=== PATIENT | male | born 1950 | race Caucasian/White ===

== ENCOUNTER 2018-09-12 10:03 | Emergency (ER) | payer MEDICARE, MEDICAID ==
[2018-09-12 11:38] VITALS: BP 164/101
--- NOTE | 2018-09-12 12:07 | ED ---
Lower Extremity - HPI Summary HPI Summary: Patient is a 67-year-old male who presents to the ED with left leg pain. He states this is an injury from several years ago and he is here because he is out of his tramadol. He also states his has needed some of the tramadol, but does not say either way if he is getting them to her. Denies any fevers, sweats, chills. Patient continues to state the only reason he is here is to refill his prescription and tramadol. He states he has been unable to see his PCP as he is too weak to walk. He is refusing social work consult. He denies any other complaints or symptoms. - History of Current Complaint Chief Complaint: EDExtremityLower Stated Complaint: LEG PAIN PER EMS Time Seen by Provider: 09/12/18 10:14 Hx Obtained From: Patient Mechanism Of Injury: Unknown Onset of Pain: Prior to Arrival Onset/Duration: Still Present Severity Initially: Moderate Severity Currently: Moderate Pain Intensity: 6 Pain Scale Used: 0-10 Numeric Timing: Constant Location: Is Discrete @ - left anterior thigh pain Character Of Pain: Aching Associated Signs And Symptoms: Negative: Swelling, Redness, Bruising Aggravating Factor(s): Standing, Ambulation Alleviating Factor(s): Rest Able to Bear Weight: No - Allergies/Home Medications Allergies/Adverse Reactions: Allergies Allergy/AdvReac Type Severity Reaction Status Date / Time Adhesive Tape Allergy Blisters Verified 03/14/16 15:48 [Tegaderm Dressing] PMH/Surg Hx/FS Hx/Imm Hx Previously Healthy: Yes Endocrine/Hematology History: Denies: Hx Anemia, Hx Unexplained Bleeding Cardiovascular History: Reports: Hx Congestive Heart Failure, Hx Hypertension, Other Cardiovascular Problems/Disorders Denies: Hx Aneurysm, Hx Angina, Hx Angioplasty, Hx Auto Implanted Cardiovert Defib, Hx Cardiac Arrest, Hx Cardiomegaly, Hx Congenital Heart Disease, Hx Coronary Artery Disease, Hx Deep Vein Thrombosis, Hx Hypercholesterolemia, Hx Hypotension, Hx Pacemaker/ICD, Hx Peripheral Vascular Disease, Hx Rheumatic Fever, Hx Syncope, Hx Valvular Heart Disease Respiratory History: Reports: Hx Pneumonia, Hx Sleep Apnea Denies: Hx Asthma, Hx Bronchopulmonary Dysplasia, Hx Chronic Bronchitis, Hx Chronic Obstructive Pulmonary Disease (COPD), Hx Cystic Fibrosis, Hx Lung Cancer , Hx Pleural Effusion, Hx Pulmonary Edema, Hx Pulmonary Embolism, Hx Seasonal Allergies, Other Respiratory Problems/Disorders GI History: Reports: Other GI Disorders - encephalopathy Denies: Hx Cirrhosis, Hx Crohn's Disease, Hx Diverticulosis, Hx Gall Bladder Disease, Hx Gastroesophageal Reflux Disease, Hx Gastrointestinal Bleed, Hx Hiatal Hernia, Hx Irritable Bowel, Hx Jaundice, Hx Obstructive Bowel, Hx Ileostomy, Hx Pyloric Stenosis, Hx Ulcer Sensory History: Denies: Hx Cataracts, Hx Contacts or Glasses, Hx Eye Injury, Hx Eye Prosthesis, Hx Glaucoma, Hx Macular Degeneration, Hx Vision Problem, Hx Deafness , Hx Hearing Aid, Hx Hearing Problem, Other Sensory Impairments Opthamlomology History: Denies: Hx Cataracts, Hx Contacts or Glasses, Hx Eye Injury, Hx Eye Prosthesis, Hx Glaucoma, Hx Macular Degeneration, Hx Vision Problem, Other Sensory Impairments Neurological History: Reports: Hx Dementia Denies: Hx Developmental Delay, Hx Headaches, Hx Migraine, Hx Seizures, Hx Spinal Cord Injury, Hx Transient Ischemic Attacks (TIA), Other Neuro Impairments /Disorders - Immunization History Hx Pertussis Vaccination: No Immunizations Up to Date: Yes Infectious Disease History: No Infectious Disease History: Denies: Hx Clostridium Difficile, Hx Hepatitis, Hx Human Immunodeficiency Virus (HIV), Hx Shingles, Hx Tuberculosis, Traveled Outside the [place] in Last 30 Days - Family History Known Family History: Negative: Hypertension, Diabetes Family History: LEVEL 5 CAVEAT UNABLE TO OBTAIN FULL HISTORY DUE TO PAST HISTORY OF DEMENTIA. - Social History Occupation: Unemployed Lives: Alone Alcohol Use: None Hx Substance Use: No Substance Use Type: Reports: None Hx Tobacco Use: No Smoking Status (MU): Never Smoked Tobacco Review of Systems Constitutional: Negative Negative: Fever, Chills Negative: Palpitations, Chest Pain Negative: Shortness Of Breath, Cough Positive: Arthralgia - left thigh pain Skin: Negative Neurological: Negative All Other Systems Reviewed And Are Negative: Yes Physical Exam Triage Information Reviewed: Yes Vital Signs On Initial Exam: Initial Vitals Pulse BP Pulse Ox 88 131/98 98 09/12/18 10:05 09/12/18 10:05 09/12/18 10:05 Vital Signs Reviewed: Yes Appearance: Positive: Well-Appearing, Well-Nourished Skin: Positive: Warm, Skin Color Reflects Adequate Perfusion Head/Face: Positive: Normal Head/Face Inspection Eyes: Positive: EOMI Neck: Positive: No Lymphadenopathy Respiratory/Lung Sounds: Positive: Clear to Auscultation Cardiovascular: Positive: RRR Musculoskeletal: Positive: Pain @ - left thigh pain Neurological: Positive: Alert, Oriented to Person Place, Time, Speech Normal Psychiatric: Positive: Affect/Mood Appropriate Diagnostics - Vital Signs Vital Signs Temp Pulse Resp BP Pulse Ox 09/12/18 11:38 97.6 F 79 18 164/101 100 09/12/18 11:34 85 164/101 99 09/12/18 11:12 82 167/100 98 09/12/18 11:00 82 98 09/12/18 10:42 72 167/95 99 09/12/18 10:14 87 98 09/12/18 10:12 85 143/97 98 09/12/18 10:06 97.6 F 89 16 131/98 99 09/12/18 10:05 88 131/98 98 - Laboratory Lab Statement: Any lab studies that have been ordered have been reviewed, and results considered in the medical decision making process. Lower Extremity Course/Dx - Course Course Of Treatment: During the course of treatment, the patient is evaluated for left leg pain. He states his leg pain has been present for several years, most notably located to the anterior thigh and states "I'm dying of this." However, he is unsure of what is causing the leg pain. He states he takes 6 tramadol daily and states he is out. I-STAT reveals his prescription was refilled on 08/16/18 which was 27 days ago. He should have 3 more days of this prescription, however states he has been out for 2 weeks. I attempted to explain how he should have 18 pills left and must be taking more than prescribed. He denies this. I have offered other pain control such as tylenol however he refuses. He will follow up with his PCP on friday and I have suggested a social work consult for further care and possibly housing if he is unable to get to his appointments. - Diagnoses Provider Diagnoses: Medication requested Discharge - Sign-Out/Discharge Documenting (check all that apply): Patient Departure Patient Received Moderate/Deep Sedation with Procedure: No - Discharge Plan Condition: Stable Disposition: HOME Referrals: Nicholas Virk MD [Primary Care Provider] - Additional Instructions: YOU NEED TO CALL YOUR PHYSICIAN ON FRIDAY MPORNING IF YOU ARE UNABLE TO GET TO YOUR APPOINTMENTS, I SUGGEST YOU CONTACT YOUR DOCTOR REGARDING SOCIAL WORK TO OBTAIN HOUSING DISCUSSED, WE ARE UNABLE TO FILL YOUR TRAMADOL PRESCRIPTION BECAUSE YOU HAVE A PRESCRIPTION THROUGH SEPTEMBER 14. - Billing Disposition and Condition Condition: STABLE Disposition: Home
== END 2018-09-12 11:38 | disposition home or self-care (01) ==
LOC: ED 10:03
DX: M79.605 Pain in left leg (principal); I50.9 Heart failure, unspecified; I11.0 Hypertensive heart disease with heart failure; Z79.899 Other long term (current) drug therapy
CPT/HCPCS: 99281

== ENCOUNTER 2023-09-17 19:27 | Inpatient (IN) ==
[2023-09-17 20:27] LABS: Hematocrit 48.3 % (38-53); Hemoglobin 16.1 g/dL (13.2-16.3); Mean Corpuscular Hemoglobin 31.3 pg (27-33); Mean Corpuscular Hgb Conc 33.4 g/dL (31-36); Mean Corpuscular Volume 93.8 fL (80-97); Platelet Count 289 10^3/uL (150-450); Red Blood Count 5.15 10^6/uL (4.06-5.63); Red Cell Distribution Width 14.9 % (12-17)
[2023-09-17] MEDS: Lactated Ringers 1000 ml BAG 1,000 ML IV ONE ×2 (20:33→21:55)
[2023-09-17 21:04] LABS: ABS Lymphocytes 0.6 10^3/uL (1.0-4.8); ABS Monocytes 1.5 10^3/uL (0.0-1.1); ABS Neutrophils 16.9 10^3/uL (1.5-7.6); ABS Nucleated RBC 0.02 10^3/ul; Lymphocyte % 3.2 %; Nucleated Red Blood Cells % 0.1 %/100WBC (0.0-0.8)
[2023-09-17 21:13] LABS: Albumin 4.5 g/dL (3.2-5.2); Albumin/Globulin Ratio 1.5 (1-3); C Reactive Protein 140.44 mg/L (<8.01); Calcium 10.9 mg/dL (8.6-10.3); Creatinine, Serum 1.87 mg/dL (0.67-1.17); Magnesium 2.9 mg/dL (1.9-2.7); Total Bilirubin 2.3 mg/dL (0.2-1.0); Total Protein 7.5 g/dL (6.4-8.9)
[2023-09-17] MEDS: Piperacillin/Tazobac 3.375 BAG 3.375 GM/100 ML BAG IV ONE (21:40)
[2023-09-17 22:09] LABS: High Sensitivity Troponin 1 Hr 112 pg/mL (<20)
[2023-09-17 23:20] LABS: Creatinine, Serum 1.69 mg/dL (0.67-1.17); Potassium 3.9 mmol/L (3.5-5.0); eGFR CKD-EPI 42.9 (>60)
[2023-09-18] MEDS: D5W 1000 ml BAG 1,000 ML IV SCH (00:32)
[2023-09-18] MEDS: Metoprolol Tartrate 5 mg VIAL 5 ml VIAL (1 mg/ml) IV ONE ×4 (00:45→13:17)
[2023-09-18 01:41] LABS: Venous Bicarbonate HCO3 26.5 mmol/L (24-28)
[2023-09-18] MEDS: Enoxaparin 30 MG/0.3 ML SYR SUBCUT SCH (03:04)
[2023-09-18] MEDS: cefTRIAXone 1 gm/50 mL D5W 1 GM/50 ML BAG IV SCH (06:01)
[2023-09-18 07:45] LABS: Venous Bicarbonate HCO3 30.1 mmol/L (24-28)
[2023-09-18 07:51] LABS: ABS Lymphocytes 0.7 10^3/uL (1.0-4.8); ABS Monocytes 1.3 10^3/uL (0.0-1.1); ABS Neutrophils 13.1 10^3/uL (1.5-7.6); ABS Nucleated RBC 0.01 10^3/ul; Eosinophil % 0.1 %; Hematocrit 41.4 % (38-53); Hemoglobin 13.8 g/dL (13.2-16.3); Lymphocyte % 4.6 %; Mean Corpuscular Hemoglobin 31.1 pg (27-33); Mean Corpuscular Hgb Conc 33.4 g/dL (31-36); Mean Corpuscular Volume 93.3 fL (80-97); Nucleated Red Blood Cells % 0.1 %/100WBC (0.0-0.8); Platelet Count 226 10^3/uL (150-450); Red Blood Count 4.44 10^6/uL (4.06-5.63); Red Cell Distribution Width 14.5 % (12-17); White Blood Count 15.2 10^3/uL (3.6-10.2)
[2023-09-18 08:28] LABS: Albumin 3.5 g/dL (3.2-5.2); Albumin/Globulin Ratio 1.3 (1-3); Calcium 9.5 mg/dL (8.6-10.3); Creatinine, Serum 1.77 mg/dL (0.67-1.17); Globulin 2.6 g/dL (2-4); Magnesium 2.5 mg/dL (1.9-2.7); Phosphorus 2.8 mg/dL (2.5-5.0); Potassium 3.5 mmol/L (3.5-5.0); Total Bilirubin 2.2 mg/dL (0.2-1.0); Total Protein 6.1 g/dL (6.4-8.9); eGFR CKD-EPI 40.6 (>60)
[2023-09-18] MEDS: Sulfur Hexaflouride MICROSPHR 25 MG VIAL IV ONE (10:17)
[2023-09-18] MEDS: KCL 20 MEQ/100 ML IVPREMIX 20 MEQ/100 ML BAG IV SCH (11:21)
[2023-09-18] MEDS: Metoprolol Tartrate 5 mg VIAL 5 ml VIAL (1 mg/ml) ONE (11:21)
[2023-09-18 11:44] LABS: Urine Appearance Turbid; Urine Bilirubin 1+ (Negative); Urine Blood 3+ (Negative); Urine Color Yellow; Urine Glucose Negative (Negative); Urine Ketones 1+ (Negative); Urine Nitrite Negative (Negative); Urine Protein 1+ (>=30 mg/dL) (Negative); Urine Specific Gravity 1.023 (1.002-1.030); Urine Urobilinogen 1+ (Negative)
[2023-09-18 11:45] LABS: Urine Bacteria Absent /HPF (Absent); Urine Red Blood Cell Trace(0-2/hpf) /HPF (0-Trace); Urine White Blood Cell Trace(0-5/hpf) /HPF (0-Trace)
[2023-09-18 12:21] LABS: TSH Ultra Thyroid Stim Horm 1.4 mcIU/mL (0.34-5.60)
[2023-09-18 12:32] LABS: Folate 6.28 ng/mL (5.90-24.80)
[2023-09-18] MEDS ORDERED: Metoprolol Tartrate 5 mg VIAL 5 ml VIAL (1 mg/ml) IV PRN (12:58)
[2023-09-18 13:11] LABS: Albumin 3.4 g/dL (3.2-5.2); Albumin/Globulin Ratio 1.5 (1-3); Calcium 9.4 mg/dL (8.6-10.3); Creatinine, Serum 1.78 mg/dL (0.67-1.17); Globulin 2.3 g/dL (2-4); Magnesium 2.4 mg/dL (1.9-2.7); Potassium 3.8 mmol/L (3.5-5.0); Total Protein 5.7 g/dL (6.4-8.9); eGFR CKD-EPI 40.3 (>60)
[2023-09-18 13:20] LABS: Phosphorus 3.2 mg/dL (2.5-5.0)
[2023-09-18] MEDS: Metoprolol Tartrate 5 mg VIAL 5 ml VIAL (1 mg/ml) IV PRN (16:56)
[2023-09-19 00:13] LABS: Albumin 3.1 g/dL (3.2-5.2); Albumin/Globulin Ratio 1.3 (1-3); Calcium 8.9 mg/dL (8.6-10.3); Creatinine, Serum 1.65 mg/dL (0.67-1.17); Globulin 2.3 g/dL (2-4); Magnesium 2.2 mg/dL (1.9-2.7); Potassium 3.6 mmol/L (3.5-5.0); Total Bilirubin 1.5 mg/dL (0.2-1.0); Total Protein 5.4 g/dL (6.4-8.9); eGFR CKD-EPI 44.1 (>60)
[2023-09-19 06:25] LABS: Hematocrit 38.6 % (38-53); Hemoglobin 12.8 g/dL (13.2-16.3); Mean Corpuscular Hemoglobin 31.1 pg (27-33); Mean Corpuscular Hgb Conc 33.2 g/dL (31-36); Mean Corpuscular Volume 93.9 fL (80-97); Mean Platelet Volume 7.5 fL (7.5-11.2); Platelet Count 197 10^3/uL (150-450); Red Blood Count 4.12 10^6/uL (4.06-5.63); Red Cell Distribution Width 14.5 % (12-17); White Blood Count 11.6 10^3/uL (3.6-10.2)
[2023-09-19 06:41] LABS: Calcium 8.6 mg/dL (8.6-10.3); Creatinine, Serum 1.57 mg/dL (0.67-1.17); Magnesium 2.2 mg/dL (1.9-2.7); Potassium 3.6 mmol/L (3.5-5.0); eGFR CKD-EPI 46.8 (>60)
[2023-09-19] MEDS: KCL 20 MEQ/100 ML IVPREMIX 20 MEQ/100 ML BAG IV SCH (07:39)
[2023-09-19 08:24] LABS: ABS Eosinophils 0.1 10^3/uL (0.0-0.5); ABS Lymphocytes 1.6 10^3/uL (1.0-4.8); ABS Monocytes 0.9 10^3/uL (0.0-1.1); ABS Nucleated RBC 0.01 10^3/ul; Eosinophil % 0.5 %; Lymphocyte % 13.5 %; Nucleated Red Blood Cells % 0.1 %/100WBC (0.0-0.8); RBC Morphology Normal (Normal)
[2023-09-19] MEDS: Lactated Ringers 1000 ml BAG 1,000 ML IV SCH (10:15)
[2023-09-19] MEDS: Enoxaparin 30 MG/0.3 ML SYR SUBCUT SCH (11:18)
[2023-09-19] MEDS: Enoxaparin 80 MG/0.8 ML SYR SUBCUT SCH (11:29)
[2023-09-19] MEDS ORDERED: Sulfur Hexaflouride MICROSPHR 25 MG VIAL ONE (13:31)
[2023-09-19 14:53] LABS: Ferritin 368.2 ng/mL (24-336)
[2023-09-20 05:19] LABS: ABS Eosinophils 0.1 10^3/uL (0.0-0.5); ABS Lymphocytes 1.6 10^3/uL (1.0-4.8); ABS Monocytes 0.9 10^3/uL (0.0-1.1); ABS Neutrophils 7.5 10^3/uL (1.5-7.6); ABS Nucleated RBC 0.01 10^3/ul; Eosinophil % 1.3 %; Hemoglobin 12.3 g/dL (13.2-16.3); Lymphocyte % 15.6 %; Mean Corpuscular Hemoglobin 31.7 pg (27-33); Mean Corpuscular Hgb Conc 34.1 g/dL (31-36); Mean Corpuscular Volume 93.2 fL (80-97); Mean Platelet Volume 7.4 fL (7.5-11.2); Nucleated Red Blood Cells % 0.1 %/100WBC (0.0-0.8); Platelet Count 178 10^3/uL (150-450); Red Blood Count 3.87 10^6/uL (4.06-5.63); Red Cell Distribution Width 14.5 % (12-17); White Blood Count 10.1 10^3/uL (3.6-10.2)
[2023-09-20 05:37] LABS: Calcium 8.6 mg/dL (8.6-10.3); Creatinine, Serum 1.06 mg/dL (0.67-1.17); Magnesium 1.9 mg/dL (1.9-2.7); Potassium 4.2 mmol/L (3.5-5.0)
[2023-09-20] MEDS: Magnesium Sulfate 2 gm BAG 2 GM/50 ML BAG IVPB ONE (14:37)
[2023-09-20] MEDS: Lactated Ringers 1000 ml BAG 1,000 ML IV SCH (14:39)
[2023-09-20] MEDS: Digoxin IV 0.5 MG/2 ML AMP (0.25 MG/ML) ONE (17:46)
[2023-09-20] MEDS: Amiodarone 150 mg IVPREMIX 150 MG/100 ML BAG IV ONE ×2 (18:04→18:05)
[2023-09-20] MEDS: Digoxin IV 0.5 MG/2 ML AMP (0.25 MG/ML) IV ONE (18:04)
[2023-09-20] MEDS: Amiodarone 360 MG IVPREMIX 360 MG/200 ML BAG IV ONE (18:05)
[2023-09-20 18:07] LABS: Hematocrit 31.5 % (38-53); Hemoglobin 10.1 g/dL (13.2-16.3); Mean Corpuscular Hgb Conc 32.1 g/dL (31-36); Mean Corpuscular Volume 93.4 fL (80-97); Mean Platelet Volume 7.8 fL (7.5-11.2); Platelet Count 244 10^3/uL (150-450); Red Blood Count 3.37 10^6/uL (4.06-5.63); Red Cell Distribution Width 14.6 % (12-17); White Blood Count 16.7 10^3/uL (3.6-10.2)
[2023-09-20] MEDS: Amiodarone 360 MG IVPREMIX 360 MG/200 ML BAG IV SCH (18:10)
[2023-09-20 18:41] LABS: Albumin 2.5 g/dL (3.2-5.2); Albumin/Globulin Ratio 1.3 (1-3); Calcium 8.2 mg/dL (8.6-10.3); Creatinine, Serum 1.11 mg/dL (0.67-1.17); Potassium 4.7 mmol/L (3.5-5.0); Total Bilirubin 0.7 mg/dL (0.2-1.0); Total Protein 4.5 g/dL (6.4-8.9)
[2023-09-20 19:08] LABS: ABS Basophils 0.1 10^3/uL (0.0-0.1); ABS Eosinophils 0.1 10^3/uL (0.0-0.5); ABS Lymphocytes 1.9 10^3/uL (1.0-4.8); ABS Monocytes 1.3 10^3/uL (0.0-1.1); ABS Neutrophils 13.3 10^3/uL (1.5-7.6); ABS Nucleated RBC 0.02 10^3/ul; Eosinophil % 0.5 %; Lymphocyte % 11.4 %; Nucleated Red Blood Cells % 0.1 %/100WBC (0.0-0.8)
[2023-09-20] MEDS: Phenylephrine IV 10 MG/ML 1 ml VIAL ONE (19:08)
[2023-09-20] MEDS: PHENYLEPHRINE DRIP IVPREMIX 50 MG/250 ML BAG IV SCH (19:09)
[2023-09-20 19:48] LABS: PCO2 Arterial 28 mmHg (35-45); PO2 Arterial 236 mmHg (80-100)
[2023-09-20] MEDS: .Amiodarone 24HR ONLY IV Protocol Order Note IV ONE (20:56)
[2023-09-20 22:28] LABS: Magnesium 2.5 mg/dL (1.9-2.7)
[2023-09-20] MEDS: cefTRIAXone 1 gm/50 mL D5W 1 GM/50 ML BAG IV SCH (22:41)
[2023-09-20 23:36] LABS: Urine Appearance Clear; Urine Bilirubin Negative (Negative); Urine Blood Trace (Negative); Urine Color Light-Yellow; Urine Glucose Negative (Negative); Urine Ketones Negative (Negative); Urine Nitrite Negative (Negative); Urine Protein Negative (Negative); Urine Specific Gravity 1.016 (1.002-1.030); Urine Urobilinogen Negative (Negative)
[2023-09-20] MEDS: Iohexol 350 (CONTRAST) 500 ML MDV IV ONE (23:48)
[2023-09-21] MEDS ORDERED: Amiodarone 360 MG IVPREMIX 360 MG/200 ML BAG IV SCH (00:15)
[2023-09-21] MEDS ORDERED: Vancomycin per Pharmacy 1 EA NOTE FOLLOW UP SCH (01:00)
[2023-09-21] MEDS: Vancomycin 1,000 MG in NS 0.9% 250 ml 250 ML IVPB ONE (01:21)
[2023-09-21] MEDS: Lactated Ringers 1000 ml BAG 500 ML IV ONE (02:32)
[2023-09-21] MEDS: Metoprolol Tartrate 5 mg VIAL 5 ml VIAL (1 mg/ml) IV SCH (04:20)
[2023-09-21 05:08] LABS: Hematocrit 24.8 % (38-53); Hemoglobin 8.3 g/dL (13.2-16.3); Mean Corpuscular Hemoglobin 31.4 pg (27-33); Mean Corpuscular Hgb Conc 33.6 g/dL (31-36); Mean Corpuscular Volume 93.4 fL (80-97); Mean Platelet Volume 7.3 fL (7.5-11.2); Platelet Count 174 10^3/uL (150-450); Red Blood Count 2.66 10^6/uL (4.06-5.63); Red Cell Distribution Width 14.2 % (12-17)
[2023-09-21 05:23] LABS: Calcium 7.7 mg/dL (8.6-10.3); Creatinine, Serum 1.02 mg/dL (0.67-1.17); Phosphorus 2.4 mg/dL (2.5-5.0); eGFR CKD-EPI 78.6 (>60)
[2023-09-21 05:38] LABS: ABS Basophils 0.1 10^3/uL (0.0-0.1); ABS Eosinophils 0.1 10^3/uL (0.0-0.5); ABS Lymphocytes 1.5 10^3/uL (1.0-4.8); ABS Neutrophils 10.4 10^3/uL (1.5-7.6); ABS Nucleated RBC 0.01 10^3/ul; Eosinophil % 0.4 %; Lymphocyte % 11.3 %; Nucleated Red Blood Cells % 0.1 %/100WBC (0.0-0.8); RBC Morphology Normal (Normal)
[2023-09-21] MEDS: Acetaminophen IV 1 GM/100ML 1,000 MG/100 ML BAG IV PRN (07:54)
[2023-09-21] MEDS: Pantoprazole VIAL 40 MG VIAL IV SCH (08:44)
[2023-09-21] MEDS ORDERED: Potassium Phosphate IV 15 MMOL in NS 0.9% 250 ml 250 ML IVPB ONE (09:23)
[2023-09-21 09:47] LABS: Hematocrit 24.2 % (38-53); Hemoglobin 7.9 g/dL (13.2-16.3)
[2023-09-21] MEDS: Vancomycin 1000 MG in NS 0.9% 250 ML IVPB SCH (10:36)
[2023-09-21] MEDS: Amiodarone 150 mg IVPREMIX 150 MG/100 ML BAG IV ONE (13:18)
[2023-09-22 01:46] LABS: Hematocrit 28.8 % (38-53); Hemoglobin 9.5 g/dL (13.2-16.3)
[2023-09-22 05:30] LABS: Hematocrit 27.8 % (38-53); Hemoglobin 9.4 g/dL (13.2-16.3); Mean Corpuscular Hemoglobin 31.5 pg (27-33); Mean Corpuscular Hgb Conc 33.8 g/dL (31-36); Mean Corpuscular Volume 93.2 fL (80-97); Mean Platelet Volume 7.5 fL (7.5-11.2); Platelet Count 168 10^3/uL (150-450); Red Blood Count 2.98 10^6/uL (4.06-5.63); Red Cell Distribution Width 15.5 % (12-17); White Blood Count 13.7 10^3/uL (3.6-10.2)
[2023-09-22 06:12] LABS: ABS Basophils 0.1 10^3/uL (0.0-0.1); ABS Eosinophils 0.2 10^3/uL (0.0-0.5); ABS Lymphocytes 1.1 10^3/uL (1.0-4.8); ABS Monocytes 0.9 10^3/uL (0.0-1.1); ABS Neutrophils 11.4 10^3/uL (1.5-7.6); ABS Nucleated RBC 0.02 10^3/ul; Eosinophil % 1.3 %; Lymphocyte % 8.2 %; Nucleated Red Blood Cells % 0.1 %/100WBC (0.0-0.8)
[2023-09-22 06:17] LABS: Calcium 7.9 mg/dL (8.6-10.3); Magnesium 1.9 mg/dL (1.9-2.7); Phosphorus 3.1 mg/dL (2.5-5.0); Potassium 4.2 mmol/L (3.5-5.0); eGFR CKD-EPI 80.5 (>60)
[2023-09-22] MEDS: D5LR 1000 ml BAG 1,000 ML IV SCH (08:53)
[2023-09-22] MEDS: Amiodarone 150 mg IVPREMIX 150 MG/100 ML BAG IV SCH (09:52)
[2023-09-22] MEDS: Amiodarone IV 150 mg/3 ml VIAL IV SLOW PU ONE (10:15)
[2023-09-22] MEDS: Vancomycin Trough Check NOTE FOLLOW UP ONE (11:44)
[2023-09-22] MEDS ORDERED: Morphine ORAL CONCENTRATE 5 MG/0.25 ML ORAL.SYRIN SL PRN ×2 (12:22→12:42)
[2023-09-22] MEDS ORDERED: Polyethylene Glycol 3350 17 GM PACKET PO PRN (12:43)
[2023-09-22] MEDS ORDERED: Vancomycin 750 MG in NS 0.9% 250 ml 250 ML IVPB SCH (13:00)
[2023-09-22 23:09] VITALS: BP 158/86
[2023-09-23] MEDS: Amiodarone 400 mg TAB PO SCH (09:21)
[2023-09-24] MEDS ORDERED: Vancomycin Trough Check NOTE FOLLOW UP ONE (12:30)
== END 2023-09-25 13:45 | DRG 308 ==
LOC: EDHOLD 19:27 → ED 19:27 → SUATTDRO 22:14 → MED 23:27 → MEDTELE 09-18 16:46 → SUATTDRO 09-19 09:59 → ICU 09-20 17:54 → MEDTELE 09-22 15:24 → MED 09-22 19:56
PROVIDERS: ADMIT Internal Medicine; ATTEND Internal Medicine